=== PATIENT | female | born 1955 | race Two or more races ===

== ENCOUNTER 2025-05-09 09:29 | Outpatient (AMB) | payer MEDICARE, MEDICAID, SELFPAY ==
--- NOTE | 2025-05-09 09:54 | ORTHONT_ITS ---
Vital signs 05/09/25 09:55 Height 1.6 m Height Method Stated Weight 82.724 kg Weight Measurement Method Standing Scale BMI 32.3 BP 136/78 H Blood Pressure Source Automatic Cuff Blood Pressure Location Left Upper Arm Position Sitting Respiration 18 Pulse 69 Pulse Source Monitor Temp 97.8 F Temp Source Temporal Artery Scan Pulse Oximetry (%) 99 Oxygen Delivery Method Room Air Med/Allergies Allergies & Medications Allergies NKA* Allergy (Uncoded 05/09/25 09:56) Medication Reconciliation atenolol 25 mg tablet ##0 01/12/15 [History Confirmed 05/09/25] hydrochlorothiazide 25 mg tablet 25 mg PO QAM #0 tabs 01/12/15 [History Confirmed 05/09/25] lisinopril 40 mg tablet 40 mg PO QDAY #0 tabs 01/12/15 [History Confirmed 05/09/25] Exam Exam Patient is in no acute distress and is cooperative with the examination today. Breathing is nonlabored. In no respiratory distress. Patient has no paraspinal tenderness. Spinal deformity cannot be appreciated. The gait of the patient is nonantalgic Bilateral extremities were evaluated and demonstrates sensation intact to light touch. Palpable pedal pulses are present. No significant edema is present. Bilateral knees were examined and the patient has full strength and range of motion.. The left hip was examined. Patient was able to flex to 90 degrees, adduct to 30 degrees, abduct to 40 degrees, internally rotate to 20 degrees, and externally rotate to 20 degrees. Patient has a negative logroll. Stinchfield is negative. The patient is nontender diffusely to touch. The right hip was examined. Patient was able to flex to 90 degrees, adduct to 30 degrees, abduct to 40 degrees, internally rotate to 20 degrees, and externally rotate to 20 degrees. Patient has a negative logroll. The stinchfield is negative. Her x-ray report says that she has mild arthritis. She does not have a physical copy of her x-ray to review today Assessment and Plan Problem List (1) Back pain: Status: Acute (2) Lumbar radiculopathy: Status: Acute Plan: Patient is a 69-year-old female with right back pain that radiates all the way down to her foot. There is associated numbness and tingling and she has an unknown spine history issue. Her hip examination is very benign as well as her x-rays according to the report. I recommend that she see a spine physician as her symptoms are classic for back issues and she has a known spinal history. She was told that she has surgery previously and I would get this checked Advanced Care Planning Discussion Advance care planning discussed with:: patient Office Procedures GNS Level of Care Nursing/Assessment Patient Status: Initial/New Patient Nursing Assessment/Reassesment: Medication Reconciliation, Update PMH in EMR and Vital Signs Coordination of Care: Complex Care and Chronic Disease 1-5, Education Complex Pt/Fam, Consent,records obtained, informed consent, 1 Ins Authorization, Lab and Imaging orders, Results/Orders obtained and Staff clarify orders Special Needs: Language special needs New Patient Charge New Patient Point Assignment: 1124 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 Intake Visit Data Collection New Patient or Established: New Patient (never been to [facility]) Reason for Visit:: PAIN RIGHT HIP Seen by Clinical Staff ONLY (RN/MA): No Geometrician Required: Yes PCP or OBGYN visit in last 3 months: Yes Hx Now: No Do You Feel Safe at Home: Yes Authorities Contacted: N/A Questionairres Past Medical History Past Medical History Have you ever been diagnosed with any of the following: Cardiology Problems Hypertension: Yes Respiratory Problems Asthma: No Smoking: No Smoking Cessation Counseling: No Smoking Exposure: No Genital/Urinary Problems Renal Disease: No Endocrine Problems Diabetes Mellitus Type 2: No Blood Problems Sickle Cell Disease: No Subjective Visit Visit for: new patient and hip (RIGHT) Immunization / Flu Flu Vaccine in the Last 12 Months: Yes Flu Vaccine Exclusion Criteria: Already Received History of Present Illness Chief complaint: r hip pain Date of injury / onset of symptoms: 6 MONTHS Patient is a 69-year-old female with right back pain. She reports that the pain radiates all the way to her toes. She has known back issues and was told she needed surgery in the past. She is here because she wants to make sure the pain is not from her hip. She has tried anti-inflammatories in the past Personal History Occupation: RETIRED Pain Pain level (0-10): 4 Pain duration: ON AND OFF Pain location: outside (lateral) and anterior Pain quality: sharp and dull Pain timing: night and increases with activity Associated signs & symptoms: numbness and weakness Ambulatory data Ambulatory device: none Walking distance (minutes): 30 Treatments Number of previous injections: 0 Improvement with previous injections: No Number of Physical Therapy sessions: 20 Improvement with PT: No Improvement with NSAIDS: yes (DICLOFENAC GEL) Review of Systems Review of Systems: All systems negative unless otherwise noted in HPI.
[2025-05-09 09:55] VITALS: BP 136/78; PULSE 69; RESP 18; TEMP 36.6; O2SAT 99; BMI 32.3
== END 2025-05-09 10:13 | disposition home or self-care (01) ==
LOC: HODSRG 09:29
PROVIDERS: PCP Family Medicine; Referring Provider Family Medicine; Supervising Provider Orthopaedic Surgery Adult Reconstructive Orthopaedic Surgery; Visit Provider Orthopaedic Surgery Adult Reconstructive Orthopaedic Surgery
DX: M54.9 Dorsalgia, unspecified (principal); M54.16 Radiculopathy, lumbar region; I10 Essential (primary) hypertension
CPT/HCPCS: 99204; G0463

== ENCOUNTER → 2025-05-29 | Outpatient (CLI) | payer MEDICARE, MEDICAID, SELFPAY ==
--- NOTE | 2025-05-29 08:45 | XR_ITS ---
Examination: Diagnostic digital mammography, bilateral Computer aided detection 3-D breast Tomosynthesis, bilateral Date and time of exam: May 29, 2025 0831 hours Compared to mammograms dating to August 08, 2020 INDICATIONS: Personal history right breast cancer 2020 Technique: Nonmagnified MLO, CC views of the breasts to been obtained, reconstructed from 3-D Tomosynthesis images. R2 computer aided detection program utilized for evaluation of suspicious masses and/or abnormal calcifications. 3-D Tomosynthesis images obtained. Findings: The breasts are heterogeneously dense, which may obscure small masses Breast biopsy marker upper outer left breast anterior depth Scar formation surgical clips again noted right breast retroareolar, right breast sonogram May 20, 2024 retroareolar nodule 14 x 16 x 21 mm which may have been scar formation Impression: BI-RADS Category 0: Incomplete: Need additional imaging evaluation Recommend repeat right breast sonography to confirm stability of architectural distortion right breast retroareolar.
== END | disposition home or self-care (01) ==
LOC: CDIM 08:19
PROVIDERS: Referring Provider Internal Medicine Hematology & Oncology; Visit Provider Internal Medicine Hematology & Oncology
DX: R92.8 Other abnormal and inconclusive findings on diagnostic imaging of breast (principal); C50.411 Malignant neoplasm of upper-outer quadrant of right female breast
CPT/HCPCS: 77062; 77066; G0279

== ENCOUNTER → 2025-06-30 | Outpatient (CLI) | payer MEDICARE, MEDICAID, SELFPAY ==
--- NOTE | 2025-06-30 09:15 | XR_ITS ---
Examination: Breast ultrasound, unilateral, right complete Date and time of exam: June 30, 2025 0947 hours INDICATIONS: History right breast lumpectomy for carcinoma 2021 Technique: Real-time ramirez scale ultrasonographic imaging performed right breast including all 4 quadrants as well as nipple retroareolar and axillary region. Findings: Retroareolar scarring, no cystic or solid mass IMPRESSION: BI-RADS Category 3: Probably benign findings Recommend 1 additional 6 month right breast sonogram follow-up to document stability of scarring in the retroareolar region right breast
== END | disposition home or self-care (01) ==
LOC: CDIM 09:10
PROVIDERS: Referring Provider Internal Medicine Hematology & Oncology; Visit Provider Internal Medicine Hematology & Oncology
DX: R92.8 Other abnormal and inconclusive findings on diagnostic imaging of breast (principal)
CPT/HCPCS: 76641